=== PATIENT | male | born 1985 | race Two or more races ===

== ENCOUNTER 2022-01-23 12:23 | Emergency (ER) | payer BC ==
[~2022-01-23] VITALS: Ht 167.6 cm; Wt 65.8 kg
[2022-01-23 12:36] VITALS: BP 135/88
[2022-01-23] MEDS ORDERED: BACI30OI9 TP (13:59)
--- NOTE | 2022-01-23 14:10 | NUR ---
JOSE/SUTURES REMOVED. NO BLEEDING NOTED.
--- NOTE | 2022-01-23 14:16 | NUR ---
Patient discharged to home in stable condition. Written and verbal after care instructions given. Patient verbalizes understanding of instruction.
== END 2022-01-23 14:17 | disposition home or self-care (01) ==
LOC: ER 12:35
DX: Z48.02 Encounter for removal of sutures (principal); Z60.2 Problems related to living alone